=== PATIENT | female | born 1980 | race Caucasian/White ===

== ENCOUNTER 2019-08-21 10:20 | Observation (INO) | payer BC, MEDICARE ==
[~2019-08-21] VITALS: Ht 154.9 cm; Wt 64.1 kg
[2019-08-21 11:02] VITALS: BP 103/69
[2019-08-21] MEDS ORDERED: DEXTROSE 5%-LACTATED RINGERS 1,000 ML IV ONE (11:45)
[2019-08-21] MEDS ORDERED: FERR-82 PO (13:59)
[2019-08-21] MEDS ORDERED: DOCU-275 PO (14:00)
[2019-08-21] MEDS ORDERED: PNV1TABL89 PO (14:00)
== END 2019-08-21 13:10 | disposition other institution (70) ==
LOC: 4S 10:20
PROVIDERS: ADMIT Obstetrics & Gynecology; ATTEND Obstetrics & Gynecology
DX: O42.913 Preterm premature rupture of membranes, unspecified as to length of time between rupture and onset of labor, third trimester (principal); O62.9 Abnormality of forces of labor, unspecified; O09.523 Supervision of elderly multigravida, third trimester; Z3A.32 32 weeks gestation of pregnancy
CPT/HCPCS: 59025; 81001; G0378; X7700

== ENCOUNTER 2019-08-21 13:45 | Emergency (ER) | payer MEDICARE ==
[~2019-08-21] VITALS: Ht 154.9 cm; Wt 64.1 kg
[2019-08-21] MEDS ORDERED: FERR-82 PO (13:59)
[2019-08-21] MEDS ORDERED: DOCU-275 PO (14:00)
[2019-08-21] MEDS ORDERED: PNV1TABL89 PO (14:00)
[2019-08-21 15:03] LABS: BASOPHILS % (AUTO) 0.5 % (0.0-2.0); EOSINOPHILS % (AUTO) 0 % (1.0-6.0); HEMATOCRIT 30.9 % (36-46); HEMOGLOBIN 10.6 g/dL (12.0-16.0); LYMPHOCYTES # (AUTO) 0.7 K/uL (1.0-4.8); LYMPHOCYTES % (AUTO) 9.2 % (22.0-44.0); MEAN CORPUSCULAR HEMOGLOBIN 32.3 pg (26.0-34.0); MEAN CORPUSCULAR HGB CONC 34.3 G/dL (31.0-37.0); MEAN CORPUSCULAR VOLUME 94 fL (80-100); MONOCYTES # (AUTO) 0.4 K/uL (0.1-1.0); MONOCYTES % (AUTO) 5.5 % (2.0-9.0); NEUTROPHILS # (AUTO) 6.9 K/uL (1.8-7.7); NEUTROPHILS % (AUTO) 84.8 % (40.0-70.0); PLATELET COUNT (AUTO) 197 K/uL (150-450); RED BLOOD CELL COUNT(AUTO) 3.29 MIL/uL (4.00-5.20); RED CELL DISTRIBUTION WIDTH 13.1 % (11.5-14.5)
[2019-08-21 15:11] LABS: APPEARANCE,URINE CLEAR (CLEAR); BILIRUBIN,URINE NEGATIVE (NEGATIVE); GLUCOSE, URINE (UA) >=1000 mg/dL (NEGATIVE); KETONES,URINE 15 mg/dL (NEGATIVE); LEUKOCYTE ESTERASE ,URINE NEGATIVE (NEGATIVE); NITRATE,URINE NEGATIVE (NEGATIVE); OCCULT BLOOD,URINE NEGATIVE (NEGATIVE); PH,URINE 5.5 (5.0-8.0); PROTEIN,URINE NEGATIVE (NEGATIVE); UROBILINOGEN,URINE 0.2 mg/dL (<=1.0)
[2019-08-21 15:16] LABS: ANION GAP 12 mmol/L (8-16); CALCIUM, TOTAL 8.3 mg/dL (8.8-10.5); CARBON DIOXIDE 20 mmol/L (22-29); CHLORIDE 103 mmol/L (98-107); CREATININE 0.48 mg/dL (0.60-1.30); GLOMERULAR FILTR. RATE CALC > 60 mL/min (>60); GLUCOSE,RANDOM 80 mg/dL (70-110); POTASSIUM 3.1 mmol/L (3.5-5.1); SODIUM SERUM 135 mmol/L (136-145); UREA NITROGEN, BLOOD 4 mg/dL (7-18)
[2019-08-21 15:23] LABS: ALANINE AMINOTRANSFERASE 19 U/L (12-78); ALBUMIN 2.4 g/dL (3.4-5.0); ALKALINE PHOSPHATASE 116 U/L (46-116); ASPARTATE AMINOTRANSFERASE 19 U/L (15-37); BILIRUBIN,TOTAL 0.3 mg/dL (0.1-1.0); LIPASE 53 U/L (73-393); TOTAL PROTEIN, SERUM 5.7 g/dL (6.4-8.2)
[2019-08-21 15:35] LABS: BACTERIA,URINE None Seen /HPF (None Seen); RBC,URINE None Seen /HPF (0-2); SQUAMOUS EPITHELIAL CELL,UR Few /LPF (None Seen); WBC,URINE 0-2 /HPF (0-5)
[2019-08-21] MEDS: POTASSIUM CHLORIDE 20 MEQ ER TABLET PO ONE (15:50)
[2019-08-21] MEDS: ACETAMINOPHEN 325 MG TABLET PO ONE (15:50)
[2019-08-21] MEDS: SODIUM CHLORIDE 0.9% 1,000 ML IV ONE (15:51)
[2019-08-21 16:40] VITALS: BP 103/63
== END 2019-08-21 17:08 | disposition home or self-care (01) ==
LOC: EMS 13:46
DX: O26.893 Other specified pregnancy related conditions, third trimester (principal); E86.0 Dehydration; R10.30 Lower abdominal pain, unspecified; O21.8 Other vomiting complicating pregnancy; R81 Glycosuria; Z3A.32 32 weeks gestation of pregnancy
CPT/HCPCS: 36415; 80053; 81001; 83690; 85025; 96360; 99283; J7030

== ENCOUNTER 2019-10-09 10:24 | Inpatient (IN) | payer MEDICARE ==
[~2019-10-09] VITALS: Ht 154.9 cm; Wt 65.8 kg
[~2019-10-09 10:24] MED LIST: DOCU-275 PO; FERR-82 PO; PNV1TABL89 PO
[2019-10-12] MEDS ORDERED: RINGERS SOLUTION,LACTATED 1,000 ML IV PRN (11:29)
[2019-10-12] MEDS ORDERED: OXYTOCIN 30 UNITS/LACT RINGERS 500 ML IV ONE (11:29)
[2019-10-12] MEDS ORDERED: FentaNYL CITRATE-PF 100 MCG/2 ML VIAL IVP PRN (11:30)
[2019-10-12] MEDS ORDERED: METOCLOPRAMIDE HCL 5 MG/ML 2 ML VIAL IVP PRN (11:30)
[2019-10-12] MEDS ORDERED: METHYLERGONOVINE MALEATE 0.2 MG/ML VIAL IM PRN (11:30)
[2019-10-12] MEDS ORDERED: LIDOCAINE/PF 1% 30 ML VIAL INJ PRN (11:30)
[2019-10-12] MEDS ORDERED: CITRIC ACID/SODIUM CITRATE 30 ML SOLUTION UDCUP PO PRN (11:30)
[2019-10-12] MEDS ORDERED: MISOPROSTOL 25 MCG TABLET PO ONE (12:15)
[2019-10-12 12:43] VITALS: BP 115/68
[2019-10-12] MEDS ORDERED: INFLUENZA VIRUS VACCINE QVS 2019-20 (3YR+)/PF 60 MCG/0.5 ML SYRINGE IM ONE (12:45)
[2019-10-12 13:11] LABS: BASOPHILS % (AUTO) 0.3 % (0.0-2.0); EOSINOPHILS % (AUTO) 0.4 % (1.0-6.0); HEMATOCRIT 33.8 % (36-46); HEMOGLOBIN 11.3 g/dL (12.0-16.0); LYMPHOCYTES # (AUTO) 1.6 K/uL (1.0-4.8); LYMPHOCYTES % (AUTO) 22.8 % (22.0-44.0); MEAN CORPUSCULAR HEMOGLOBIN 31.6 pg (26.0-34.0); MEAN CORPUSCULAR HGB CONC 33.5 G/dL (31.0-37.0); MEAN CORPUSCULAR VOLUME 95 fL (80-100); MONOCYTES # (AUTO) 0.4 K/uL (0.1-1.0); MONOCYTES % (AUTO) 5.9 % (2.0-9.0); NEUTROPHILS % (AUTO) 70.6 % (40.0-70.0); PLATELET COUNT (AUTO) 200 K/uL (150-450); RED BLOOD CELL COUNT(AUTO) 3.58 MIL/uL (4.00-5.20); RED CELL DISTRIBUTION WIDTH 13.2 % (11.5-14.5)
[2019-10-12] MEDS ORDERED: MISOPROSTOL 50 MCG TABLET PO ONE (16:30)
[2019-10-12] MEDS: RINGERS SOLUTION,LACTATED 1,000 ML IV SCH ×2 (17:37→18:17)
[2019-10-12] MEDS ORDERED: LIDOCAINE/PF 2% 5 ML VIAL ONE (18:16)
[2019-10-12] MEDS ORDERED: ROPIVACAINE HCL/PF 0.2% 100 ML ED ONE (18:16)
[2019-10-12] MEDS ORDERED: NALBUPHINE HCL 10 MG/ML VIAL IVP PRN (18:45)
[2019-10-12] MEDS ORDERED: ONDANSETRON HCL 4 MG/2 ML VIAL IVP PRN (18:45)
[2019-10-12] MEDS ORDERED: DiphenhydrAMINE HCL 50 MG/ML VIAL IVP PRN (18:45)
[2019-10-12] MEDS ORDERED: OXYGEN THERAPY IH SCH (20:00)
[2019-10-12] MEDS ORDERED: OXYTOCIN 30 UNITS/LACT RINGERS 500 ML IV PRN (20:48)
[2019-10-13] MEDS: ROPIVACAINE HCL/PF 0.2% 100 ML ED PRN ×2 (01:28→07:58)
[2019-10-13] MEDS: RINGERS SOLUTION,LACTATED 1,000 ML IV SCH ×2 (01:29→08:18)
[2019-10-13] MEDS ORDERED: AMPICILLIN SODIUM 2 GM/NS 100 ML IV ONE (01:30)
[2019-10-13] MEDS: AMPICILLIN SODIUM 1 GM/NS 50 ML IV SCH ×2 (06:33→10:02)
[2019-10-13] MEDS ORDERED: CARBOPROST TROMETHAMINE 250 MCG/ML AMP IM PRN (08:15)
[2019-10-13] MEDS ORDERED: LEVOTHYROXINE SODIUM 50 MCG TABLET PO SCH (08:45)
[2019-10-13] MEDS ORDERED: THYROID 30 MG TABLET PO ONE (09:00)
[2019-10-13] MEDS ORDERED: MISOPROSTOL 100 MCG TABLET ONE (11:04)
[2019-10-13] MEDS ORDERED: RINGERS SOLUTION,LACTATED 1,000 ML IV ONE (11:34)
[2019-10-13] MEDS ORDERED: BENZOCAINE 20%/MENTHOL 56 GM SPRAY CANISTER TP PRN (11:45)
[2019-10-13] MEDS ORDERED: LANOLIN 7 GM OINTMENT TP PRN (11:45)
[2019-10-13] MEDS ORDERED: MEASLES/MUMPS/RUBELLA VACCINE, LIVE 0.5 ML/VIAL SQ ONE (11:45)
[2019-10-13] MEDS ORDERED: OxyCODONE HCL/ACETAMINOPHEN 5-325 MG TABLET PO PRN (11:45)
[2019-10-13] MEDS ORDERED: GLYCERIN/WITCH HAZEL LEAF 40 PADS JAR TP PRN (11:45)
[2019-10-13] MEDS: IBUPROFEN 600 MG TABLET PO PRN ×2 (12:12→18:30)
[2019-10-13] MEDS: OxyCODONE HCL/ACETAMINOPHEN 5-325 MG TABLET PO PRN ×2 (15:34→18:31)
[2019-10-13] MEDS ORDERED: MAGNESIUM HYDROXIDE SUSPENSION 30 ML UDCUP PO SCH (21:00)
[2019-10-14] MEDS: IBUPROFEN 600 MG TABLET PO PRN ×2 (00:37→08:50)
[2019-10-14] MEDS ORDERED: THYROID 30 MG TABLET PO SCH (06:30)
[2019-10-14 07:17] LABS: BASOPHILS % (AUTO) 0.3 % (0.0-2.0); EOSINOPHILS % (AUTO) 1.3 % (1.0-6.0); HEMATOCRIT 30.7 % (36-46); HEMOGLOBIN 10.2 g/dL (12.0-16.0); LYMPHOCYTES # (AUTO) 2.9 K/uL (1.0-4.8); LYMPHOCYTES % (AUTO) 36.9 % (22.0-44.0); MEAN CORPUSCULAR HEMOGLOBIN 31.6 pg (26.0-34.0); MEAN CORPUSCULAR HGB CONC 33.2 G/dL (31.0-37.0); MEAN CORPUSCULAR VOLUME 95 fL (80-100); MONOCYTES # (AUTO) 0.7 K/uL (0.1-1.0); MONOCYTES % (AUTO) 9.2 % (2.0-9.0); NEUTROPHILS # (AUTO) 4.1 K/uL (1.8-7.7); NEUTROPHILS % (AUTO) 52.3 % (40.0-70.0); PLATELET COUNT (AUTO)-OB 191 K/uL (150-450); RED BLOOD CELL COUNT(AUTO) 3.23 MIL/uL (4.00-5.20); RED CELL DISTRIBUTION WIDTH 13.3 % (11.5-14.5)
[2019-10-14] MEDS ORDERED: FERR-89 PO (09:59)
[2019-10-14] MEDS ORDERED: DOCU-275 PO (09:59)
[2019-10-14] MEDS ORDERED: IBUP-2071 PO (09:59)
== END 2019-10-14 11:40 | disposition home or self-care (01) | DRG 807 ==
LOC: OBSVTOIN 10-12 10:55 → 4S 10-12 10:55
PROVIDERS: ADMIT Obstetrics & Gynecology; ATTEND Obstetrics & Gynecology
PROC: 10E0XZZ Delivery of Products of Conception, External Approach (ICD-10-PCS; principal; 2019-10-13)
PROC: 10907ZC Drainage of Amniotic Fluid, Therapeutic from Products of Conception, Via Natural or Artificial Opening (ICD-10-PCS; 2019-10-13)
PROC: 3E0R3BZ Introduction of Anesthetic Agent into Spinal Canal, Percutaneous Approach (ICD-10-PCS; 2019-10-13)
PROC: 00HU33Z Insertion of Infusion Device into Spinal Canal, Percutaneous Approach (ICD-10-PCS; 2019-10-13)
DX: O99.824 Streptococcus B carrier state complicating childbirth (principal); Z37.0 Single live birth; O69.81X0 Labor and delivery complicated by cord around neck, without compression, not applicable or unspecified; Z3A.39 39 weeks gestation of pregnancy; O09.523 Supervision of elderly multigravida, third trimester
CPT/HCPCS: 86850; 86900; 86901; 87635; 90686; J0290; J2590; J2795; J3010; J3490; J7120